=== PATIENT | female | born 1985 | race Caucasian/White ===

== ENCOUNTER 2017-12-28 08:04 | Emergency (ER) | payer OTHER, SELFPAY ==
[2017-12-28 08:05] VITALS: BP 180/11; PULSE 85; RESP 16; TEMP 36.2; O2SAT 98; BMI 49.8
--- NOTE | 2017-12-28 08:17 | ED.VISSUMM ---
- ER Visit Summary Date of Service: 12/28/17 Chief Complaint: Back pain History of Present Illness: The patient is a 32 F who has been having back pain for 5 days. She states that she got out of the shower and started having pain. She denies any specific injury. Her pain is sharp in the lumbar area. It does not radiate. Movement makes it worse. She denies any numbness or tingling in her arms or legs. No bowel or bladder incontinence. She saw her chiropractor on Friday and Friday for this but is still having pain. She has been trying ibuprofen and Tylenol without relief. Denies any back surgeries. She states she does have a history of some back issues and has seen a chiropractor Physical Examination: Vital signs reviewed. HEENT exam unremarkable. Heart is regular rate and rhythm without murmurs. Lungs are clear to auscultation. Abdomen is soft and nontender. Back is diffusely tender along the lumbar area. Extremities reveal no edema. Skin exam normal. Neurologic exam normal. Test Results: None indicated Emergency Department Course and Treatment: Patient will be treated with Norflex and Toradol here. Naproxen and Flexeril at home. She was counseled on using ice and heat. She will also try to be as mobile as possible. She will follow-up with her PCP Treatment Plan: [] Disposition: Discharge Impression: Lumbar back pain This note was generated with [employer] dictation software. It may contain incorrect words, spelling, and punctuation that were not noted in review of the chart prior to signing ED Disposition - Plan for ED Patient: Chief Complaint: Back Referrals: Victor Manuel Velasquez DO [Primary Care Provider] -
[2017-12-28] MEDS: Ketorolac 60 MG/2 ML Vial IM (08:21)
--- NOTE | 2017-12-28 08:21 | ED.DCSUM_ITS ---
- ER Visit Summary Date of Service: 12/28/17 Chief Complaint: Back pain History of Present Illness: The patient is a 32 F who has been having back pain for 5 days. She states that she got out of the shower and started having pain. She denies any specific injury. Her pain is sharp in the lumbar area. It does not radiate. Movement makes it worse. She denies any numbness or tingling in her arms or legs. No bowel or bladder incontinence. She saw her chiropractor on Friday and Friday for this but is still having pain. She has been trying ibuprofen and Tylenol without relief. Denies any back surgeries. She states she does have a history of some back issues and has seen a chiropractor Physical Examination: Vital signs reviewed. HEENT exam unremarkable. Heart is regular rate and rhythm without murmurs. Lungs are clear to auscultation. Abdomen is soft and nontender. Back is diffusely tender along the lumbar area. Extremities reveal no edema. Skin exam normal. Neurologic exam normal. Test Results: None indicated Emergency Department Course and Treatment: Patient will be treated with Norflex and Toradol here. Naproxen and Flexeril at home. She was counseled on using ice and heat. She will also try to be as mobile as possible. She will follow- up with her PCP Treatment Plan: [] Disposition: Discharge Impression: Lumbar back pain This note was generated with [employer] dictation software. It may contain incorrect words, spelling, and punctuation that were not noted in review of the chart prior to signing ED Disposition - Plan for ED Patient: Chief Complaint: Back Referrals: Victor Manuel Velasquez DO [Primary Care Provider] -
--- NOTE | 2017-12-28 08:21 | ED.DEP ---
ED Disposition - Plan for ED Patient: Disposition: Home or Assisted Living Chief Complaint: Back Instructions: ED Sprain Strain Lumbar Prescriptions: Naproxen [Naprosyn] 500 mg PO BID PRN #20 tab Cyclobenzaprine [Flexeril] 10 mg PO TID PRN #20 tab PRN Reason: Muscle Spasm Referrals: Victor Manuel Velasquez DO [Primary Care Provider] -
[2017-12-28] MEDS: Orphenadrine 60 MG/2 ML Ampul IM (08:22)
[2017-12-28 08:48] VITALS: BP 156/108; PULSE 78; RESP 12; O2SAT 100
== END 2017-12-28 08:49 | disposition home or self-care (01) ==
LOC: ED 08:32
PROVIDERS: Emergency Provider Emergency Medicine; Family Provider Student in an Organized Health Care Education/Training Program; PCP Student in an Organized Health Care Education/Training Program
DX: M54.5 Low back pain (principal); E66.9 Obesity, unspecified
CPT/HCPCS: 96372; 99282

== ENCOUNTER → 2023-01-01 | Outpatient (CLI) | payer OTHER, SELFPAY ==
--- NOTE | 2023-01-01 08:12 | US_ITS ---
STUDY: ABDOMINAL ULTRASOUND - RIGHT UPPER QUADRANT; ELASTOGRAPHY REASON FOR VISIT: Female, 37 years old. Fat infiltration of the liver. TECHNIQUE: Ultrasound evaluation of the right upper quadrant was performed with real-time and static vera-scale imaging. Point quantification shear wave elastography was performed (Vocal[employer]). TECHNICAL QUALITY: Adequate. COMPARISON: None. FINDINGS: Liver: The liver is enlarged and measures 20.1 cm. There is increased echogenicity consistent with fatty infiltration. The bile ducts are within normal limits. There is hepatic color flow. The direction of portal flow is hepatopetal. There is no demonstrated mass lesion. Median liver stiffness measured 6.9 kPa. Gallbladder: Normal distended gallbladder. The gallbladder wall measures 2.1 mm. There is a negative sonographic Garvey''s sign. There is no pericholecystic fluid. There are multiple echogenic structures within the gallbladder, consistent with multiple gallstones. Common Bile Duct (C.B.D.): The common bile duct measures 4.0 mm. Pancreas: There is normal echogenicity of the visualized pancreas. There is no demonstrated pancreatic mass or cyst. Right Kidney: Normal size of the right kidney. The right kidney measures 12.4 cm x 6.2 cm x 4.8 cm. Normal renal cortex. The right cortex measures 1.8 cm. There is no demonstrated renal mass or cyst. There is no right hydronephrosis. US/ABD Limited w/ Elastography IMPRESSION: 1. Liver stiffness measures 6.9 kPa compatible with F2-F3 (Mild to moderate liver fibrosis) Metavir score. 2. Hepatomegaly and fatty infiltration of the liver. Electronically Signed: Dangelo Lacey MD at 8:50 EDT ,
== END | disposition home or self-care (01) ==
PROVIDERS: PCP Student in an Organized Health Care Education/Training Program; Referring Provider Student in an Organized Health Care Education/Training Program; Visit Provider Student in an Organized Health Care Education/Training Program
DX: R11.0 Nausea (principal); K76.0 Fatty (change of) liver, not elsewhere classified
CPT/HCPCS: 91200; 76705; 76981

== ENCOUNTER 2024-02-25 12:31 | Emergency (ER) | payer OTHER, SELFPAY ==
[2024-02-25 12:32] VITALS: BP 133/100; PULSE 107; RESP 18; TEMP 36.4; O2SAT 97; BMI 48.3
[2024-02-25 13:50] LABS: Absolute Lymphocyte Count 2.53 X10^3/uL (0.83-4.51); Absolute Neutrophil Count 6.8 X10^3/uL (2.0-7.7); Basophil# 0.04 X10^3/uL; Basophil% 0.4 % (0-1); Eosinophil# 0.09 X10^3/uL; Eosinophils% 0.9 % (0-5); Hematocrit 44.1 % (37-47); Hemoglobin 14.1 g/dL (12.0-15.0); Lymphocyte # 2.53 X10^3/ul (0.83-4.51); Lymphocyte % 25.5 % (19-41); Mean Corpuscular Hgb 25.9 pg (27.0-32.0); Mean Corpuscular Volume 80.9 fL (81-99); Mean Platelet Vol. 9.1 fl (6.2-12.0); Monocyte# 0.41 X10^3/uL; Monocyte% 4.1 % (0-10); NRBC Flagged by Analyzer 0 % (0-5); Neutrophil # 6.82 X10^3/uL (2.7-7.7); Neutrophil % 68.7 % (47-70); Platelet Count 364 K/mm3 (150-450); RBC Distribution Width CV 13.1 % (11.6-14.6); RBC Distribution Width SD 37.6 fl (35.1-43.9); Red Blood Count 5.45 M/mm3 (4.2-5.4); White Blood Count 9.9 K/mm3 (4.4-11.0)
[2024-02-25 14:08] LABS: Internal QC Validated? YES +Cl - CLEAR BKGD; Pregnancy, Serum, hCG Quali. NEGATIVE Negative
[2024-02-25 14:14] LABS: ALB/GLOB Ratio 1.1 RATIO (0.9-2.4); AST(SGOT) 24 U/L (15-37); Alanine Aminotransfer ALT/SGPT 35 U/L (13-56); Albumin, Serum 3.9 g/dL (3.2-5.0); Alkaline Phosphatase 66 U/L (45-117); Anion Gap 7 (5-15); BUN 13 mg/dL (7-18); BUN/Creat Ratio 15.9 RATIO (10-20); Calcium,Total 9.4 mg/dL (8.5-10.1); Chloride 105 mmol/L (98-107); Creatinine, Serum 0.82 mg/dL (0.55-1.02); EST Glomerular Filtration Rate 84 mL/min (>60); Est Glom Filt Rate - Afr Amer 101 mL/min (>60); Globulin 3.7 g/dL (2.2-4.2); Glucose 136 mg/dL (74-106); Potassium 3.9 mmol/L (3.5-5.1); Protein, Total 7.6 g/dL (6.4-8.2); Sodium Level 137 mmol/L (136-145)
[2024-02-25 14:20] LABS: Mucous, Urine 0 SEEN /hpf (<or=2+); White Blood Cells 0 SEEN /hpf (0-5)
[2024-02-25 14:29] LABS: Color, Urine Yellow (Yellow); Glucose, Dipstick Normal (Normal); Ketone-Dipstick 50 mg/dl (Negative); Leukocyte Esterase-Dipstick 25 /ul (Negative); Nitrite-Dipstick Negative (Negative); Occult Blood-Urine 250 /ul (Negative); Protein-Dipstick 30 mg/dl (Negative); Specific Gravity, Urine 1.025 (1.002-1.030); Urine Clarity Cloudy (Clear); Urine Urobilinogen 1 mg/dl (Normal)
[2024-02-25 14:38] LABS: Urine Bilirubin Dipstick 1 mg/dL (Negative)
[2024-02-25 14:39] LABS: Red Blood Cells-Urine 50-100 SEEN /hpf (0-5)
[2024-02-25 14:40] LABS: Bacteria 1+ /hpf (None Seen); Squamous Epithelial Cells - UA 5-10 SEEN /hpf (5-10)
[2024-02-25 14:42] VITALS: BP 140/82; PULSE 107; RESP 18; O2SAT 97
--- NOTE | 2024-02-25 15:04 | ED.VIS.GI ---
HPI HPI - GI History of Present Illness Chief Complaint: Abd Pain Informant: patient Abdominal Pain/Flank Pain Onset: Today Context: Sudden Onset Timing: Continuous Quality: Aching and Stabbing Location: LUQ, LLQ and Left Flank Worsened by: Nothing Relieved by: - (Laying back) Nausea/Vomiting/Emesis GI Symptom: Positive for Nausea and Vomiting Onset: Today Quality: Positive for Nonbilious; Negative for Blood streaks, Coffee ground or Hematemesis Episodes: 1 Diarrhea/Melena/Hematochezia GI Symptom: Negative for Diarrhea, Melena or Hematochezia Associated Symptoms Associated Symptoms: Negative for Dysuria, Frequency or Hematuria Narrative Narrative: Patient presents with abdominal pain that began today. Patient states it began rather suddenly. Patient states that started on the left side of her abdomen and has radiated to her back. Patient states nothing makes it worse. Patient states it is better when she is able to lay back. Patient admits to some nausea and 1 episode of vomiting. Patient denies any hematemesis or coffee-ground emesis. Patient denies any diarrhea, melena, or hematochezia. Patient denies any dysuria, frequency, or hematuria. [facility] Medical History (Updated 02/25/24 @ 17:[address] Mateo Monteiro, DO) Hypertension Home Medications ?Medication ?Instructions ?Recorded ?Last Taken ?Type cholecalciferol (vitamin D3) 25 2,000 unit PO DAILY 08/09/14 02/25/24 History mcg (1,000 unit) tablet (Vitamin D3) diphenhydramine HCl 25 mg capsule 25 mg PO Q6H PRN PRN Sleep 08/09/14 Unknown History (Banophen) loratadine 10 mg tablet (Allergy 10 mg PO DAILY 08/09/14 02/25/24 History Relief (loratadine)) cyclobenzaprine 10 mg tablet 10 mg PO TID PRN Muscle Spasm #20 12/28/17 Unknown Rx tabs multivitamin with calcium and 1 tab PO DAILY 12/28/17 02/25/24 History minerals-folic acid 200 mcg tablet (One-A-Day Proactive 65 Plus) naproxen 500 mg tablet 500 mg PO BID PRN #20 tabs 12/28/17 Unknown Rx hydrocodone-acetaminophen 5-325mg 1 tab PO Q6H PRN PRN Pain 3 days 02/25/24 Unknown Rx 5mg-325mg #10 TABLETS lisinopril 20 mg tablet 20 mg PO DAILY 02/25/24 02/25/24 History phentermine 37.5 mg tablet 37.5 mg PO DAILY 02/25/24 02/25/24 History Allergy/AdvReac Type Severity Reaction Status Date / Time No Known Allergies Allergy Verified 02/25/24 12:32 Surgical History Hx of section Hx of tonsillectomy Social History Smoking Status: Never smoker ROS ROS ED Constitutional Constitutional ED: Reports chills and subjective; Denies fever(s) Eyes Eyes: Denies blurry vision or change in vision ENT ENT ED: Denies rhinorrhea or sore throat Cardiovascular Cardiovascular: Denies chest pain or palpitations Respiratory/Chest Respiratory/Chest: Denies cough or dyspnea Gastrointestinal Gastrointestinal: Reports abdominal pain, nausea and vomiting Genitourinary Genitourinary ED: Denies dysuria or hematuria Musculoskeletal Musculoskeletal: Reports back pain; Denies neck pain Integumentary Denies abscess or rash Neurologic Neurologic: Denies headache(s) or weakness Allergic/Immunologic Allergic/Immunologic ED: Denies mouth swelling or urticaria EXAM Physical Exam Const Vital Signs: 02/25/24 12:32 02/25/24 14:42 02/25/24 16:00 Temperature 97.5 F L Temperature Source Oral Pulse Rate 107 H 107 H 110 H Respiratory Rate 18 18 18 Blood Pressure 133/100 H 140/82 H 128/74 H Blood Pressure Mean 111 101 92 Pulse Ox 97 97 98 Oxygen Delivery Method Room Air Room Air Room Air Positive well nourished, well developed and obese General Appearance ED: well developed and NAD Nutritional Appearance: obese HEENT Reports moist mucous membranes Neck supple and no JVD Resp normal respiratory effort and clear to auscultation bilaterally Cardio regular rate and regular rhythm GI non-distended Palpation: soft and tender LLQ and LUQ; Negative for guarding or rebound tenderness present Back/Spine General Back: CVA tenderness left Neuro CN's II-XII intact bilaterally, moves all extremities and no sensory deficits noted Sensorium / Orientation: alert Motor Exam: strength 5/5 throughout Psych mental status grossly normal MDM MDM MDM Narrative Medical decision making narrative: Differential diagnosis includes ureteral calculus, pyelonephritis, urinary tract infection, ovarian cyst, ectopic , pancreatitis, diverticulitis, colitis, and gastroenteritis. CT scan of the abdomen pelvis will be obtained to assess for diverticulitis, ureteral calculus, and pyelonephritis. CBC will be obtained to assess for leukocytosis and anemia. Comprehensive metabolic profile will be obtained to assess for hepatic function, renal function, and electrolyte abnormality. Lipase will be obtained to assess for pancreatitis. Serum hCG will be obtained to assess for . Urinalysis will be obtained to assess for urinary tract infection and hematuria. Lab Data Attestation: I reviewed the patient's lab results. Lab results narrative: CBC was reviewed and was essentially within normal limits. Comprehensive metabolic profile was reviewed and was within normal limits. Serum hCG was reviewed and was negative. Urinalysis was reviewed. Occult blood was 250 with 50-100 red blood cells. There are 5-10 epithelial cells. There is 1+ bacteria. There are no white blood cells seen. Labs: Laboratory Results - last 24 hr 02/25/24 02/25/24 13:41 14:15 WBC 9.9 RBC 5.45 H Hgb 14.1 Hct 44.1 MCV 80.9 L MCH 25.9 L MCHC 32.0 RDW Std Deviation 37.6 RDW Coeff of [place] 13.1 Plt Count 364 MPV 9.1 Immature Gran % (Auto) 0.400 Neut % (Auto) 68.7 Lymph % (Auto) 25.5 [place] % (Auto) 4.1 Eos % (Auto) 0.9 Baso % (Auto) 0.4 Absolute Neuts (auto) 6.8 Absolute Lymphs (auto) 2.53 Nucleated RBC % 0 Sodium 137 Potassium 3.9 Chloride 105 Carbon Dioxide 25.0 Anion Gap 7 BUN 13 Creatinine 0.82 Estim Creat Clear Calc 128.90 Est GFR (MDRD) Af Amer 101 Est GFR (MDRD) Non-Af 84 BUN/Creatinine Ratio 15.9 Glucose 136 H Calcium 9.4 Total Bilirubin 0.30 AST 24 ALT 35 Alkaline Phosphatase 66 Total Protein 7.6 Albumin 3.9 Globulin 3.7 Albumin/Globulin Ratio 1.1 Lipase 36 Serum , Qual NEGATIVE Urine Color Yellow Urine Clarity Cloudy Urine pH 5.0 Ur Specific [place] 1.025 Urine Protein 30 H Urine Glucose (UA) Normal Urine Ketones 50 H Urine Occult Blood 250 H Urine Nitrite Negative Urine Bilirubin 1 H Urine Urobilinogen 1 H Ur Leukocyte Esterase 25 H Urine RBC 50-100 SEEN Urine WBC 0 SEEN Ur Squamous Epith Cells 5-10 SEEN Urine Bacteria 1+ Urine Mucus 0 SEEN Radiography Diagnostic Testing: Clinical Impression(s) from Imaging Studies Abdomen/Pelvis CT 02/25/24 15:19 IMPRESSION: Proximal left ureteral stone. Mild left hydronephrosis. Electronically Signed: He Moya DO at 16:44 EDT Reading Location ID and State: [facility] / [place] Tel [phone], Service support , CT scan of the abdomen pelvis was obtained. There is a proximal left ureteral calculus measuring approximately 3 mm just distal to the UPJ. There is mild left hydronephrosis. There is no other acute abnormality noted. This was interpreted by the radiologist was also independently reviewed by myself. Treatment and Re-Evaluation :: Patient was advised of her findings. Patient was given a prescription for a short course of [place]. Patient was instructed to drink plenty of fluids. Patient was instructed to follow-up with her primary care physician in 5 to 7 days. Patient was also given a referral for urology. Patient understood and was agreeable with the plan. All questions were answered. Discharge Plan Triage Chief Complaint: Abd Pain ED Provider: Mateo Monteiro Dx/Rx/DC Orders Clinical Impression: Left ureteral calculus, Hydronephrosis of left kidney, Hypertension Instructions: ED Kidney Stone with Pain Prescriptions: New hydrocodone-acetaminophen 5-325 mg tablet 1 tab PO Q6H PRN PRN (Reason: Pain) 3 Days Qty: 10 0RF No Action diphenhydramine HCl [Banophen] 25 MG capsule 25 mg PO Q6H PRN PRN (Reason: Sleep) loratadine [Allergy Relief (loratadine)] 10 MG tablet 10 mg PO DAILY cholecalciferol (vitamin D3) [Vitamin D3] 1,000 UNIT tablet 2,000 unit PO DAILY cyclobenzaprine 10 MG tablet 10 mg PO TID PRN (Reason: Muscle Spasm) Qty: 20 0RF naproxen 500 MG tablet 500 mg PO BID PRN Qty: 20 0RF One-A-Day Proactive 65 Plus 200 MCG tablet 1 tab PO DAILY phentermine 37.5 mg tablet 37.5 mg PO DAILY lisinopril 20 mg tablet 20 mg PO DAILY Primary Care Provider: Victor Manuel Velasquez Referrals: Victor Manuel Velasquez DO [Primary Care Provider] - 5-7 Days Joseph Giron MD [Med Staff - Active Staff] - 3-5 Days Print Language: Ukrainian Disposition Disposition: Home, Self Care
--- NOTE | 2024-02-25 15:19 | CT_ITS ---
STUDY: CT ABDOMEN AND PELVIS WITHOUT CONTRAST REASON FOR EXAM: Female, 39 years old. Left flank pain RADIATION DOSAGE (If Supplied By Facility): CTDIvol = ( 24.17 ) mGy, DLP = ( 1268.10 ) mGycm TECHNIQUE: Transaxial images were obtained from the dome of the diaphragm to the symphysis pubis without oral contrast, and without intravenous contrast. Sagittal and coronal images were reconstructed. Individualized dose optimization techniques were used for this CT. COMPARISON: None. FINDINGS: The visualized lung bases are unremarkable. The visualized portions of the heart are within normal limits. Normal liver. Normal gallbladder and extrahepatic biliary system. Normal spleen. Normal pancreas. Normal bilateral adrenal glands. Normal right kidney. Mild hydronephrosis of the left kidney. There is a 3 mm proximal left ureteral stone just distal to the UPJ level. Normal visualized stomach. Normal small intestine. Normal colon. The appendix is not visualized. Normal abdominal aorta. Normal inferior vena cava. Normal retroperitoneum. Normal urinary bladder. Normal abdominal wall. Degenerative vertebral changes and scoliosis. CT/Abdomen/Pelvis without Cont IMPRESSION: Proximal left ureteral stone. Mild left hydronephrosis. Electronically Signed: He Moya DO at 16:44 EDT Reading Location ID and State: [facility] / [place] Tel [phone], Service support ,
[2024-02-25 15:58] LABS: Lipase 36 U/L (13-75)
[2024-02-25 16:00] VITALS: BP 128/74; PULSE 110; RESP 18; O2SAT 98
[2024-02-25] MEDS: Ketorolac 30 MG/ML Syringe IV (16:07)
[2024-02-25] MEDS: Ondansetron 4 MG/2 ML Vial IV (16:08)
[2024-02-25 17:25] VITALS: BP 130/70; PULSE 87; RESP 18; TEMP 36.6; O2SAT 98
== END 2024-02-25 17:26 | disposition home or self-care (01) ==
PROVIDERS: Emergency Provider Emergency Medicine; PCP Student in an Organized Health Care Education/Training Program; Visit Provider Emergency Medicine
DX: N13.2 Hydronephrosis with renal and ureteral calculous obstruction (principal); R11.2 Nausea with vomiting, unspecified; I10 Essential (primary) hypertension; E66.9 Obesity, unspecified
CPT/HCPCS: 74176; 80053; 81001; 83690; 84703; 85025; 96374; 96375; 99282; A4216; J2405

== ENCOUNTER 2024-02-28 05:54 | Emergency (ER) | payer OTHER, SELFPAY ==
[2024-02-28 05:55] VITALS: BP 162/101; PULSE 100; RESP 16; TEMP 36.6; O2SAT 98; BMI 49.2
--- NOTE | 2024-02-28 06:17 | EX.ED.DYSGE1 ---
HPI History of Present Illness Chief Complaint: Flank Pain Informant: patient Narrative Narrative: Patient is a 39-year-old female with past medical history of hypertension who was seen on February 24 and diagnosed with a 3 mm kidney stone. Patient states that after leaving the ER she was feeling well. However she awoke this morning and then noticed some pain in the left abdomen which radiated towards her groin and felt similar nature to her previous kidney stone diagnosis. She states she took a pain pill without symptom relief and then developed bouts of nausea and vomiting. Based on the persistent pain and the inability to keep food or fluid down she presents for reevaluation. [facility] Medical History Hypertension Home Medications ?Medication ?Instructions ?Recorded ?Last Taken ?Type cholecalciferol (vitamin D3) 25 2,000 unit PO DAILY 08/09/14 02/25/24 History mcg (1,000 unit) tablet (Vitamin D3) diphenhydramine HCl 25 mg capsule 25 mg PO Q6H PRN PRN Sleep 08/09/14 Unknown History (Banophen) loratadine 10 mg tablet (Allergy 10 mg PO DAILY 08/09/14 02/25/24 History Relief (loratadine)) cyclobenzaprine 10 mg tablet 10 mg PO TID PRN Muscle Spasm #20 12/28/17 Unknown Rx tabs multivitamin with calcium and 1 tab PO DAILY 12/28/17 02/25/24 History minerals-folic acid 200 mcg tablet (One-A-Day Proactive 65 Plus) naproxen 500 mg tablet 500 mg PO BID PRN #20 tabs 12/28/17 Unknown Rx hydrocodone-acetaminophen 5-325mg 1 tab PO Q6H PRN PRN Pain 3 days 02/25/24 Unknown Rx 5mg-325mg #10 TABLETS lisinopril 20 mg tablet 20 mg PO DAILY 02/25/24 02/25/24 History phentermine 37.5 mg tablet 37.5 mg PO DAILY 02/25/24 02/25/24 History ketorolac 10 mg tablet 10 mg PO 4X/DAY PRN pain 5 days 02/28/24 Unknown Rx #20 tabs ondansetron 4 mg disintegrating 4 mg PO TID PRN nausea and 02/28/24 Unknown Rx tablet vomiting #21 tabs oxycodone-acetaminophen 5 mg-325 1 tab PO Q6H PRN pain 3 days #12 02/28/24 Unknown Rx mg tablet (Percocet) tabs tamsulosin 0.4 mg capsule (Flomax) 0.4 mg PO DAILY #14 caps 02/28/24 Unknown Rx Allergy/AdvReac Type Severity Reaction Status Date / Time No Known Allergies Allergy Verified 02/28/24 05:59 Surgical History Hx of section Hx of tonsillectomy Social History Smoking Status: Never smoker ROS ROS ED Constitutional Constitutional ED: Denies chills or fever(s) ENT ENT ED: Denies sore throat Cardiovascular Cardiovascular: Denies chest pain Respiratory/Chest Respiratory/Chest: Denies cough or dyspnea Gastrointestinal Gastrointestinal: Reports abdominal pain, nausea and vomiting; Denies diarrhea Genitourinary Genitourinary ED: Denies dysuria Musculoskeletal Musculoskeletal: Reports back pain; Denies myalgias Integumentary Denies rash Neurologic Neurologic: Denies headache(s) Hematologic/Lymphatic Hematologic/Lymphatic: Denies easy bleeding or easy bruising EXAM Physical Exam Const Vital Signs: 02/28/24 05:55 Temperature 97.9 F Temperature Source Temporal Pulse Rate 100 Respiratory Rate 16 Blood Pressure 162/101 H Blood Pressure Mean 121 Pulse Ox 98 Oxygen Delivery Method Room Air Positive well nourished, well developed and obese General Appearance ED: well developed; Negative for pallor Nutritional Appearance: obese HEENT Reports moist mucous membranes HEENT Narrative: No tongue or lip swelling no oral lesions no airway edema or compromise No signs of infection noted in the posterior pharynx Eyes PERRL and EOMs intact bilaterally General Eye ED: Negative for scleral icterus Neck supple Resp normal respiratory effort and clear to auscultation bilaterally Cardio regular rate and regular rhythm Rate: other Other Details: Heart is regular rate and rhythm without murmurs rubs or gallops Radial and carotid pulses are equal and symmetric GI non-distended and no masses GI Narrative: Abdomen is obese soft and nondistended with normal active bowel sounds. Patient has pain on palpation along the left side of the abdomen in the mid to upper region without voluntary guarding or rigidity. No pulsatile mass or fluid wave. No peritoneal signs Auscultation: normoactive bowel sounds Palpation: soft Back/Spine Back/Spine Narrative: Positive left CVA pain noted Extremity normal to inspection Neuro oriented x3, CN's II-XII intact bilaterally and no sensory deficits noted Sensorium / Orientation: alert Motor Exam: strength 5/5 throughout Psych mental status grossly normal Skin no rashes or lesions noted and no wounds Skin Narrative: No overlying abrasions or ecchymosis to suggest trauma and no erythema or warmth to suggest infection General Skin Exam: Negative for jaundice or pallor MDM MDM MDM Narrative Medical decision making narrative: Patient presented to the ER hypertensive but has a past medical history of this. She was seen the other day and has a known kidney stone and at 3 mm in size that should be passed. She is afebrile but in order to ensure there is no signs of urosepsis or acute kidney injury or electrolyte abnormality basic blood work and a urine sample were repeated. Labs show no clinically significant findings. Urine shows +2 bacteria but there are no white blood cells and she does not have dysuria therefore I feel this is natural mary and do not need to place the patient on antibiotics. After receiving IV fluids Zofran and Toradol patient had resolution of pain and reported feeling better. Therefore do not feel there is need for admission for a potential stent placement at this time. Patient will have her [place] changed to Percocet be prescribed Zofran for nausea vomiting control and also been placed on Toradol. She understands she needs to follow-up with urology for repeat evaluation but if symptoms worsen once again despite change in medication that she needs to return for potential admission and stent placement History & Record Review Discussion w/independent historian: Patient Lab Data Attestation: I reviewed the patient's lab results. Labs: Laboratory Results - last 24 hr 02/28/24 02/28/24 06:10 06:18 WBC 10.8 RBC 5.40 Hgb 14.1 Hct 43.6 MCV 80.7 L MCH 26.1 L MCHC 32.3 RDW Std Deviation 36.9 RDW Coeff of [place] 13.0 Plt Count 372 MPV 9.2 Immature Gran % (Auto) 0.400 Neut % (Auto) 76.0 H Lymph % (Auto) 18.5 L [place] % (Auto) 4.1 Eos % (Auto) 0.6 Baso % (Auto) 0.4 Absolute Neuts (auto) 8.2 H Absolute Lymphs (auto) 2.00 Nucleated RBC % 0 Sodium 139 Potassium 4.2 Chloride 106 Carbon Dioxide 28.0 Anion Gap 5 BUN 12 Creatinine 0.85 Estim Creat Clear Calc 125.72 Est GFR (MDRD) Af Amer 97 Est GFR (MDRD) Non-Af 80 BUN/Creatinine Ratio 14.2 Glucose 118 H Calcium 9.1 Urine Color Yellow Urine Clarity Clear Urine pH 6.0 Ur Specific [place] 1.025 Urine Protein 30 H Urine Glucose (UA) Normal Urine Ketones Negative Urine Occult Blood 250 H Urine Nitrite Negative Urine Bilirubin Negative Urine Urobilinogen Normal Ur Leukocyte Esterase 25 H Urine RBC 25-50 SEEN Urine WBC 0-5 SEEN Ur Squamous Epith Cells 0 SEEN Urine Bacteria 2+ Urine Mucus 0 SEEN Discharge Plan Triage Chief Complaint: Flank Pain ED Provider: Jacques Billingsley Dx/Rx/DC Orders Clinical Impression: Left ureteral calculus, Renal colic, Hypertension Instructions: ED Kidney Stone with Pain Prescriptions: New oxycodone-acetaminophen [Percocet] 5-325 mg tablet 1 tab PO Q6H PRN (Reason: pain) 3 Days Qty: 12 0RF ketorolac 10 mg tablet 10 mg PO 4X/DAY PRN (Reason: pain) 5 Days Qty: 20 0RF tamsulosin [Flomax] 0.4 mg capsule 0.4 mg PO DAILY Qty: 14 0RF ondansetron 4 mg tablet,disintegrating 4 mg PO TID PRN (Reason: nausea and vomiting) Qty: 21 0RF No Action diphenhydramine HCl [Banophen] 25 MG capsule 25 mg PO Q6H PRN PRN (Reason: Sleep) loratadine [Allergy Relief (loratadine)] 10 MG tablet 10 mg PO DAILY cholecalciferol (vitamin D3) [Vitamin D3] 1,000 UNIT tablet 2,000 unit PO DAILY cyclobenzaprine 10 MG tablet 10 mg PO TID PRN (Reason: Muscle Spasm) Qty: 20 0RF naproxen 500 MG tablet 500 mg PO BID PRN Qty: 20 0RF One-A-Day Proactive 65 Plus 200 MCG tablet 1 tab PO DAILY phentermine 37.5 mg tablet 37.5 mg PO DAILY lisinopril 20 mg tablet 20 mg PO DAILY hydrocodone-acetaminophen 5-325 mg tablet 1 tab PO Q6H PRN PRN (Reason: Pain) 3 Days Qty: 10 0RF Primary Care Provider: Victor Manuel Velasquez Referrals: Victor Manuel Velasquez DO [Primary Care Provider] - Joseph Giron MD [Med Staff - Active Staff] - Activity Restrictions/Additional Instructions: Please stop the norco/hydrocodone and instead begin using the Percocet for improved pain control. Please keep yourself well-hydrated and use the prescribed medication as directed to help control pain and nausea. If you develop a fever over 100.4 or your pain is not controlled with the prescribed outpatient medication please return to the ER for repeat evaluation. Otherwise follow-up with urology as directed Print Language: Serbian Disposition Disposition: Home, Self Care
[2024-02-28 06:29] LABS: Mucous, Urine 0 SEEN /hpf (<or=2+); Squamous Epithelial Cells - UA 0 SEEN /hpf (5-10)
[2024-02-28] MEDS: Ondansetron 4 MG/2 ML Vial IV ×2 (06:30→07:51)
[2024-02-28] MEDS: Ketorolac 30 MG/ML Syringe IV (06:30)
[2024-02-28] MEDS: 0.9% Normal Saline (1000mL) 1,000 ML 999 ML IV (06:30)
[2024-02-28 06:31] LABS: Absolute Neutrophil Count 8.2 X10^3/uL (2.0-7.7); Basophil# 0.04 X10^3/uL; Basophil% 0.4 % (0-1); Eosinophil# 0.06 X10^3/uL; Eosinophils% 0.6 % (0-5); Hematocrit 43.6 % (37-47); Hemoglobin 14.1 g/dL (12.0-15.0); Lymphocyte % 18.5 % (19-41); Mean Corp Hgb Conc 32.3 g/dL (32-36); Mean Corpuscular Hgb 26.1 pg (27.0-32.0); Mean Corpuscular Volume 80.7 fL (81-99); Mean Platelet Vol. 9.2 fl (6.2-12.0); Monocyte# 0.44 X10^3/uL; Monocyte% 4.1 % (0-10); NRBC Flagged by Analyzer 0 % (0-5); Neutrophil # 8.23 X10^3/uL (2.7-7.7); Platelet Count 372 K/mm3 (150-450); RBC Distribution Width SD 36.9 fl (35.1-43.9); White Blood Count 10.8 K/mm3 (4.4-11.0)
[2024-02-28 06:33] LABS: Color, Urine Yellow (Yellow); Glucose, Dipstick Normal (Normal); Ketone-Dipstick Negative (Negative); Leukocyte Esterase-Dipstick 25 /ul (Negative); Nitrite-Dipstick Negative (Negative); Occult Blood-Urine 250 /ul (Negative); Protein-Dipstick 30 mg/dl (Negative); Specific Gravity, Urine 1.025 (1.002-1.030); Urine Bilirubin Dipstick Negative (Negative); Urine Clarity Clear (Clear); Urine Urobilinogen Normal (Normal)
[2024-02-28 06:43] LABS: Bacteria 2+ /hpf (None Seen); Red Blood Cells-Urine 25-50 SEEN /hpf (0-5); White Blood Cells 0-5 SEEN /hpf (0-5)
[2024-02-28 06:44] LABS: Anion Gap 5 (5-15); BUN 12 mg/dL (7-18); BUN/Creat Ratio 14.2 RATIO (10-20); Calcium,Total 9.1 mg/dL (8.5-10.1); Chloride 106 mmol/L (98-107); Creatinine, Serum 0.85 mg/dL (0.55-1.02); EST Glomerular Filtration Rate 80 mL/min (>60); Est Glom Filt Rate - Afr Amer 97 mL/min (>60); Estimated Creatinine Clearance 125.72 ml/min; Glucose 118 mg/dL (74-106); Potassium 4.2 mmol/L (3.5-5.1); Sodium Level 139 mmol/L (136-145)
[2024-02-28 07:55] VITALS: BP 148/94; PULSE 99; RESP 18; TEMP 36.3; O2SAT 99
== END 2024-02-28 08:05 | disposition home or self-care (01) ==
PROVIDERS: Emergency Provider Emergency Medicine; PCP Student in an Organized Health Care Education/Training Program; Visit Provider Emergency Medicine
DX: N20.1 Calculus of ureter (principal); I10 Essential (primary) hypertension; E66.9 Obesity, unspecified; Z87.442 Personal history of urinary calculi
CPT/HCPCS: 80048; 81001; 85025; 99282; J7030; A4216; J2405